=== PATIENT | female | born 1965 ===

== ENCOUNTER 2021-08-24 06:40 | Inpatient (IN) | payer OTHER ==
[~2021-08-24 06:40] MED LIST: COLESTID1 GM; COZAAR100 MG; LEXAPRO5 MG; PROTONIX40 M1; SINGULAIR10 MG; TOPROL XL25 M1
== END 2021-08-26 20:03 | disposition home or self-care (01) | DRG 330 ==
LOC: CIR.AMB 06:40 → O/R 15:00 → SURH 15:00
PROVIDERS: ADMIT Colon & Rectal Surgery; ATTEND Colon & Rectal Surgery
PROC: 0DBP4ZZ Excision of Rectum, Percutaneous Endoscopic Approach (ICD-10-PCS; 2021-08-24)
PROC: 0DTN4ZZ Resection of Sigmoid Colon, Percutaneous Endoscopic Approach (ICD-10-PCS; principal; 2021-08-24 07:00)
DX: K57.32 Diverticulitis of large intestine without perforation or abscess without bleeding (principal); K92.1 Melena; I10 Essential (primary) hypertension; I11.9 Hypertensive heart disease without heart failure; F41.9 Anxiety disorder, unspecified; E66.09 Other obesity due to excess calories; J45.20 Mild intermittent asthma, uncomplicated